=== PATIENT | female | born 1950 | race African-American/Black ===

== ENCOUNTER 2017-09-23 09:56 | Inpatient (IN) | payer MEDICARE, SELFPAY ==
[2017-09-23] VITALS (20 sets, daily range): BP systolic 85–111; BP diastolic 46–65; PULSE 66–86; RESP 14–18; TEMP 36.1–36.9; O2SAT 87–100; BMI 25.9
--- NOTE | 2017-09-23 | IMM_PTH ---
PATIENT: JONATHAN CASSIDY LOC: MS2 U#:[id number] AGE/SX: 67/F ROOM: [facility] [place] RE09/23/[address]: Dr. Vik Amezcua MD : 1950 BED: 1 DIS: 09/25/2017 SPEC #: [id number] RECD: 09/25/17 12:50 STATUS: MARLEN REQ #: [id number] EDITH: 09/23/17 00:[address]: Vik Amezcua DEPT: IMMUNOHISTOCHEMISTRY RECD BY: Amaury Jara ENTERED: 09/25/17 12:54 SP TYPE: IMMUNO OTHR DR: Dr. Elayne Herrera DO Tissues: Right colon Procedures: MSH2 (add) MLH-1 (add) MSH6 (add) Anti-PMS2 (add) HEART-2 (initial) HER2 ELIE (add) KI-67 (add) P53 (add) PHYSICIAN & INSTITUTION [place] [id number] SPECIMEN INFORMATION: Tissue Source: A. Right colon Clinical Info: Adenomatous polyp of colon Specimen Number: [id number] CPT code: 79723, 38656 x7 METHODOLOGY: Deparaffinized sections of prefer/formalin-fixed tissue or PAP/DQ stained slides are incubated with monoclonal/polyclonal antibodies/oligonucleotide probes. Localization is made via biotin free immunoperoxidase method. Appropriate controls are performed and reacted as expected. Results on target cell population are indicated in the following table: RESULTS: ANTIBODY / CLONE RESULT COLON CANCER PROFILE (Prognostic Markers) Ki-67 (30-9) positive, moderate P53 (DO-7) positive, 4% MSH2 (25D12) positive MSH6 (44) positive MLH-1 (M1) positive PMS2 (MGC9632) positive HEART-2 (SP21) positive Her-2neu (CB11) negative Testing for Her2 by IHC if equivocal, recommend testing for Her2 by FISH(remove/not needed) Result of Microsatellite Instability Study: Negative (no loss of mismatch protein; no microsatellite instability detected). These tests were developed and their performance characteristics determined by [facility]. They may not have been cleared or approved by the U.S. Food and Drug Administration. The FDA has determined that such clearance or approval is not necessary. INTERPRETATION: Colon, right hemicolectomy: Invasive adenocarcinoma AM:marino 09/26/17
[2017-09-23 11:38] LABS: Hemoglobin 11.2 g/dl (12.0-15.0); Red Blood Count 4.59 M/mm3 (4.2-5.4)
[2017-09-23 11:39] LABS: Absolute Lymphocyte Count 0.12 X10^3/ul (0.83-4.51); Absolute Neutrophil Count 4.3 X10^3/uL (2.0-7.7); Basophil# 0.02 X10^3/uL; Basophil% 0.3 % (0-1); Eosinophil# 0.06 X10^3/uL; Lymphocyte # 1.23 X10^3/ul (4.0); Lymphocyte % 20.5 % (19-41); Mean Corp Hgb Conc 30.3 g/gl (32-36); Mean Corpuscular Hgb 24.4 pg (27.0-32.0); Mean Corpuscular Volume 80.6 fL (81-99); Monocyte# 0.38 X10^3/uL; Monocyte% 6.3 % (0-10); Neutrophil # 4.31 X10^3/uL (2.7-7.7); Neutrophil % 71.7 % (47-70); POSITIVE COUNT NO; POSITIVE DIFFERENTIAL NO; POSITIVE MORPHOLOGY NO; Platelet Count 285 K/mm3 (150-450); RBC Distribution Width CV 17.2 % (11.6-14.6); RBC Distribution Width SD 50.9 fl (35.1-43.9)
--- NOTE | 2017-09-23 12:00 | COL_PTH ---
PATIENT: JONATHAN CASSIDY LOC: MS2 U#:[id number] AGE/SX: 67/F ROOM: [facility]211 RE09/23/[address]: Dr. Vik Amezcua MD : 1950 BED: 1 DIS: 09/25/2017 SPEC #: [id number] RECD: 09/23/17 13:55 STATUS: MARLEN NICOLA #: [id number] EDITH: 09/23/17 12:[address]: Vik Amezcua DEPT: SURGICAL PATHOLOGY RECD BY: Maldonado Carranza ENTERED: 09/23/17 14:43 SP TYPE: COLON OTHR DR: Dr. Elayne Herrera, DO Tissues: A - Colon, NOS B - Colon, NOS Procedures: Surgery Specimen Level IV Surgery Specimen Level V HEADER OPERATION: Laparoscopic, lorene colectomy PRE-OP DIAGNOSIS: Adenomatous polyp of colon TISSUE SUBMITTED: A. Right colon, B. Reanastomosis site MICROSCOPIC DIAGNOSIS A. Right colon, right hemicolectomy: Adenocarcinoma. See cancer check list below. B. Reanastomostis site, excision: Fragments of large and small bowel with no pathologic change. AM:jean 09/25/17 COMMENT COLON CANCER SUMMARY: Specimen ? right hemicolectomy Procedure ? right hemicolectomy Specimen length ? 13.5cms Tumor site - cecum Tumor size ? 4 x 3 x 3 mm Macroscopic tumor perforation ? not identified Macroscopic intactness of mesorectum - intact Histologic type - adenocarcinoma Histologic grade ? low-grade (well differentiated) Histologic features suggestive of Microsatellite Instability: Microscopic tumor extension ? tumor invades submucosal Margins: Proximal margin ? uninvolved by carcinoma Distal margin ? uninvolved by carcinoma Circumferential or mesenteric margin ? uninvolved by carcinoma Distance of invasive carcinoma from closest axial margin ? 6.5cms, proximal margin. Treatment effect - unknown Lymph-Vascular invasion ? not identified Perineural invasion ? not identified Tumor deposits ? 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 diverticular disease of colon Ancillary studies - Microsatellite instability study: See microsatellite instability study by IHC ([id number]) for complete details. Negative (no loss of mismatch protein; no microsatellite instability detected). Immunohistochemistry Studies for Mismatch Repair Proteins: MLH1 ? no loss MSH2 ? no loss MSH6 ? no loss PMS2 ? no loss PATHOLOGIC STAGE: pT1, N0, MX The above summary is in compliance with [employer] [place] Path[employer] (CAP) Cancer Protocols Checklist and [place] Joint Committee on Cancer (AJCC), Staging Manual, 7th Ed. Immunohistochemistry ([id number]) supports the above diagnosis. MICROSCOPIC DESCRIPTION Slides are reviewed. GROSS DESCRIPTION A. Received fresh for OR consultation labeled with the patient?s name and designated ?right colon?. The specimen consists of a 10 cm segment of large bowel with attached 3.5 cm of terminal ileum and attached 7 cm of appendix that has an average diameter of 0.7 cm. Located 3 cm distal to the ileocecal valve and 9 cm from the distal margin of resection is a pink burdick polyp measuring 3 x 2.5 x 1 cm. Serial sections of the appendix does not reveal mass lesions. Serial sections of the large bowel reveal several diverticula, none of which appear to have perforated through the bowel wall. The attached fibrofatty tissue contains a number of grossly unremarkable lymph nodes. Sections are submitted in 9 cassettes as follows: 1) Mucosa margins and appendix, 2) ileocecal valve, 3-5) Polyp, totally submitted, 6-7) diverticula, 8-9) multiple lymph nodes in each cassette. B. Received in fixative is one container labeled with the patient's name and designated reanastomotic site. The specimen consists of an irregular fragment of bowel measuring 2.5 x 2 x 1.2 cm. No mass lesions are identified. Interior Design Principal sections are submitted in 1 cassette. AM:jean 09/24/17 TC: 0 CPT:58050, 82591
[2017-09-23] MEDS: Clindamycin 900 MG/50 ML BAG 75 MG IV (12:05)
--- NOTE | 2017-09-23 12:10 | OP.PCM_ITS ---
Report of Operation Date of Procedure: 09/23/17 Pre-Operative Diagnosis: d12.6 adenomatous polyp of colon Post-Operative Diagnosis: Same Description of Surgical Findings:: Laparoscopic right hemicolectomy instrument inspector: None Type of Anesthesia:: General Anesthesiologist: Lalo Buckley Specimen's removed: Right colon Drains: none Estimated Blood Loss (mL): 100 cc Fluids Replaced: 1 L Description of Procedure: The patient was brought into the operating room and placed in the supine position. Under excellent general endotracheal intubation a Castro catheter was placed in the abdomen was sterilely prepped and draped in the usual fashion. Local was injected above the umbilicus dissection was carried down to the fascia. The fascia was grasped with a [place]. Varies needle was placed inside the abdomen. The abdomen was insufflated to 15 torr. A #5 trocar was placed under direct visualization without injury to underlying structures. Right lower quadrant #5 trochars placed. Some adhesions in the midline were taken down with the Enseal. A subxiphoid #5 trocar was placed. Patient was placed in the head down and rotated to the left. I mobilized the right colon along the white line of Toldt with the Enseal. I mobilized the colon all the way to the duodenum. I mobilized the hepatocolic ligament with the Enseal. Once I had the colon freely mobile I made a small incision in the midepigastric area. I placed a wound protector into the wound. I brought the right colon up and transected the colon at the hepatic flexure with a 75 linear cutter. I then transected the small intestine approximately 5 cm from the ileocecal valve with another 75 linear cutter. I came down on the mesentery and tied off the vessels with 0 Vicryl ties. I sent the colon specimen to pathology and they confirmed that I had the polyp in my specimen. I then created 2 enterotomies one on the: 1 on the small intestine. I placed a 75 linear cutter and created a [id number] functional end-to-end anastomosis. I closed the enterotomy with a 60 stapler. I placed a 3-0 silk stitch at the crotch area. I had a small bleeding vessel on the colonic mesenteric side which I tied off with 0 Vicryl ties. Once I had good hemostasis I closed the mesenteric rent with a 3-0 silk. I placed my specimen in the right upper quadrant it laid completely flat and looked quite nice. I removed my wound protector and closed the fascia with a # 1 PDS I reinflated the abdomen inspected the anastomosis once again it lied completely flat. I had good hemostasis. I deflated the abdomen. I remove the trochars good in the stasis is noted. Skin incisions were closed with subcuticular stitches of 4-0 Monocryl. Steri-Strips are applied sterile dressings were applied and the patient tolerated the procedure well. - Admit VTE Documentation VTE Present on Admission: No VTE Mechan Device Prophylaxis: SCD's VTE Pharm Prophylaxis ordered?: No Reason prophylaxis not ordered:: Treatment Not Indicated
[2017-09-23] MEDS: Bupivacaine Mpf 0.5% 30 ML VIAL (13:30)
[2017-09-23] MEDS: Gabapentin 300 MG Capsule PO (17:12)
[2017-09-23] MEDS: HYDROmorphone 1 MG/ML Syringe IV (17:12)
[2017-09-23] MEDS: Ondansetron 4 MG/2 ML Vial IV (17:19)
[2017-09-23] MEDS: HYDROmorphone PCA 0.2 MG/ML 100 ML BAG 20 MG IV (17:59)
[2017-09-23] MEDS: LORazepam 1 MG Tablet PO (21:06)
[2017-09-23] MEDS: traZODone 50 MG Tablet PO (22:07)
[2017-09-24] VITALS (14 sets, daily range): BP systolic 95–109; BP diastolic 47–67; PULSE 63–81; RESP 16–18; TEMP 36.7–37; O2SAT 93–100
[2017-09-24] MEDS: Lactated Ringers 1,000 ML 75 ML IV ×2 (00:05→11:47)
--- NOTE | 2017-09-24 03:55 | NURSING ---
SPOT WELDER LINE ambulated in hallway during this time.
--- NOTE | 2017-09-24 07:18 | PCM.PN.SRG ---
Subjective: Patient evaluated resting comfortably in bed. She notes abdominal bloating. She denies pain/discomfort, nausea, vomiting. She has walked this morning already. She is tolerating ice chips well. No flatus or BM. Has bower catheter in place. Denies fever and chest pain. - Physical Exam General: Alert, Oriented x3, Cooperative Lungs: Clear to auscultation, Normal air movement Cardiovascular: Regular rate, No murmurs Abdomen: Soft, Non-Distended, Hypoactive Bowel Sounds, Tender - generalized, - - Incisions c/d/i. No erythema or infection noted. Vital Signs Temp Pulse Resp BP Pulse Ox 98.2 F 71 16 103/47 L 98 09/24/17 06:58 09/24/17 06:58 09/24/17 06:58 09/24/17 06:58 09/24/17 06:58 Oxygen Flow Rate 1 Oxygen Delivery Method Nasal Cannula Weight: 137 lb 9.095 oz Body Mass Index (BMI) 25.9 Intake and Output for Last 24 Hours 09/22/17 09/23/17 09/24/17 23:59 23:59 23:59 Intake Total 3285 / 3285 464 / 464 Output Total 635 / 635 750 / 750 Balance 2650 / 2650 -286 / -286 Laboratory Tests Past 24 Hrs 09/23/17 11:05 WBC 6.0 RBC 4.59 Hgb 11.2 L Hct 37.0 MCV 80.6 L MCH 24.4 L MCHC 30.3 L RDW 17.2 H RDW Differential 50.9 H Plt Count 285 MPV 9.0 Immature Gran % (Auto) 0.200 Neut % (Auto) 71.7 H Lymph % (Auto) 20.5 [place] % (Auto) 6.3 Eos % (Auto) 1.0 Baso % (Auto) 0.3 Absolute Neuts (auto) 4.3 Absolute Lymphs (auto) 0.12 L Total Counted Not Reportable Assessment/Plan I am following this patient in conjunction with Dr. Amezcua. S/p laparoscopic right hemicolecotmy Advance diet to clear liquids Cont. IV fluids D/c bower Discussed ambulation multiple times today Cont. incentive spirometer use Continue to watch BP. EMBEDDED SOFTWARE ARCHITECT pump may be the etiology of the low blood pressure We will continue to monitor this patient
[2017-09-24] MEDS: Gabapentin 300 MG Capsule PO ×2 (08:52→16:21)
[2017-09-24] MEDS: Anastrozole 1 MG Tablet PO (08:52)
[2017-09-24] MEDS: HYDROcodone Bitartrate/Apap 5/325 Tablet PO ×2 (08:52→16:17)
[2017-09-24] MEDS: LORazepam 1 MG Tablet PO ×2 (08:55→21:40)
[2017-09-24] MEDS: Ondansetron 4 MG/2 ML Vial IV (08:55)
[2017-09-24 09:09] LABS: Absolute Lymphocyte Count 1.31 X10^3/ul (0.83-4.51); Absolute Neutrophil Count 6.5 X10^3/uL (2.0-7.7); Basophil# 0.03 X10^3/uL; Basophil% 0.3 % (0-1); Eosinophil# 0.11 X10^3/uL; Eosinophils% 1.2 % (0-5); Hematocrit 45.2 % (37-47); Hemoglobin 14.9 g/dl (12.0-15.0); Lymphocyte # 1.31 X10^3/ul (4.0); Lymphocyte % 14.9 % (19-41); Mean Corpuscular Hgb 26.1 pg (27.0-32.0); Mean Corpuscular Volume 79.2 fL (81-99); Mean Platelet Vol. 10.2 fl (6.2-12.0); Monocyte# 0.81 X10^3/uL; Monocyte% 9.2 % (0-10); Neutrophil # 6.53 X10^3/uL (2.7-7.7); Neutrophil % 74.2 % (47-70); Platelet Count 232 K/mm3 (150-450); RBC Distribution Width CV 16.3 % (11.6-14.6); RBC Distribution Width SD 47.1 fl (35.1-43.9); Red Blood Count 5.71 M/mm3 (4.2-5.4); White Blood Count 8.8 K/mm3 (4.4-11.0)
[2017-09-24 09:20] LABS: POSITIVE COUNT NO; POSITIVE DIFFERENTIAL NO; POSITIVE MORPHOLOGY NO
[2017-09-24 09:24] LABS: Anion Gap 12 (5-15); BUN 7 mg/dL (7-18); BUN/Creat Ratio 11.9 RATIO (10-20); Calcium,Total 8.2 mg/dL (8.5-10.1); Chloride 101 mmol/L (98-107); Creatinine, Serum 0.59 mg/dL (0.55-1.02); EST Glomerular Filtration Rate 108 mL/min (>60); Est Glom Filt Rate - Afr Amer 131 mL/min (>60); Estimated Creatinine Clearance 40.07 ml/min; Glucose 132 mg/dL (70-110); Potassium 3.5 mmol/L (3.5-5.1); Sodium Level 136 mmol/L (136-145)
--- NOTE | 2017-09-24 20:26 | NURSING ---
ELEVATOR CONSTRUCTOR HELPER ambulated in hallway with patient at this time.
[2017-09-24] MEDS: traZODone 50 MG Tablet PO (21:40)
[2017-09-25] MEDS: Lactated Ringers 1,000 ML 75 ML IV (00:05)
[2017-09-25 02:15] VITALS: BP 91/53; PULSE 80; RESP 16; TEMP 36.8; O2SAT 94
[2017-09-25] MEDS: HYDROcodone Bitartrate/Apap 5/325 Tablet PO ×2 (04:26→07:50)
--- NOTE | 2017-09-25 07:17 | DCINST_ITS ---
Discharge Diet: Soft diet - Low residue. Can have pudding, yogurt, applesauce, mashed potatoes, etc. No fresh or steamed veggies Discharge Activity: May not drive while taking narcotic pain medications. May shower in (days): 1 Lifting Restrictions: 10 pounds Call your doctor if your incision/area has: Continuous Slow Oozing, Sudden Increased Bleeding, Increased Pain/ Swelling, Increased Redness, Foul Smelling Discharge, Swelling at the incision site Call your doctor if you observe: Fever of 101 or Higher, Coldness, Increased Pain Suture Line Care: Avoid Pulling/Pushing, Avoid Pinching/Bending Change Dressing in (Days):: 4 - Leave steri-strips in place for 1 week. Cleanse incision/area with: Soap & Water Allergies/Adverse Reactions: Allergies Penicillins Allergy (Verified 09/19/17 11:50) Hives aspirin Adverse Reaction (Verified 09/19/17 11:50) Upset Stomach Medications to take at Discharge Acetaminophen [Non-Aspirin Pain Relief] 500 mg PO Q8H PRN PRN 04/24/16 Cholecalciferol (Vitamin D3) [Vitamin D3] 1 tab PO DAILY 04/24/16 Gabapentin [Neurontin] 300 mg PO BIDCM 02/15/17 Lidocaine/Prilocaine [Lidocaine-Prilocaine Cream] 30 gm TP PRN PRN 02/15/17 Anastrozole [Arimidex] 1 mg PO DAILY 08/06/17 Lorazepam [Ativan] 1 mg PO BID 08/06/17 Trazodone HCl 50 mg PO QHS 08/06/17 Rivaroxaban [Xarelto] 20 mg PO DAILY 09/23/17 Hydrocodone Bitart/Apap 5-325 [[place] 5/325] 1 - 2 tab PO Q4H PRN PRN #30 tab 04/06 The following prescriptions were given: Hydrocodone Bitart/Apap 5-325 [[place] 5/325] 1 - 2 tab PO Q4H PRN PRN #30 tab PRN Reason: Severe Pain (-07/30) Primary Care Physician: Elayne Herrera DO [Primary Care Provider] - Please Follow Up With: Aleyda Valencia PA-C - [phone] Proposed Discharge Date: 09/25/17
--- NOTE | 2017-09-25 07:18 | PCM.PN.SRG ---
Subjective: Patient evaluated resting comfortably in bed. She notes minimal amount of incisional pain/discomfort. She denies nausea, vomiting, fever. She noted very small amount of flatus this morning. Negative BM. Tolerating clear liquid diet. - Physical Exam General: Alert, Oriented x3, Cooperative Abdomen: Bowel Sounds Present, Soft, Non Tender, Non-Distended, - - Incisions c/d/i/. No erythema or infection noted Vital Signs Temp Pulse Resp BP Pulse Ox 98.2 F 80 16 91/53 L 94 09/25/17 02:15 09/25/17 02:15 09/25/17 02:15 09/25/17 02:15 09/25/17 02:15 Oxygen Flow Rate 1 Oxygen Delivery Method Room Air Weight: 137 lb 9.095 oz Body Mass Index (BMI) 25.9 Intake and Output for Last 24 Hours 09/23/17 09/24/17 09/25/17 23:59 23:59 23:59 Intake Total 3285 / 3285 3313 / 3313 399 / 399 Output Total 635 / 635 2700 / 2700 450 / 450 Balance 2650 / 2650 613 / 613 -51 / -51 Laboratory Tests Past 24 Hrs 09/24/17 09/24/17 08:45 08:45 WBC 8.8 RBC 5.71 H Hgb 14.9 Hct 45.2 MCV 79.2 L MCH 26.1 L MCHC 33.0 RDW 16.3 H RDW Differential 47.1 H Plt Count 232 MPV 10.2 Immature Gran % (Auto) 0.200 Neut % (Auto) 74.2 H Lymph % (Auto) 14.9 L [place] % (Auto) 9.2 Eos % (Auto) 1.2 Baso % (Auto) 0.3 Absolute Neuts (auto) 6.5 Absolute Lymphs (auto) 1.31 Total Counted Not Reportable Sodium 136 Potassium 3.5 Chloride 101 Carbon Dioxide 23.0 Anion Gap 12 BUN 7 Creatinine 0.59 Estim Creat Clear Calc 40.07 Est GFR (MDRD) Af Amer 131 Est GFR (MDRD) Non-Af 108 BUN/Creatinine Ratio 11.9 Glucose 132 H Calcium 8.2 L Assessment/Plan I am following this patient in conjunction with Dr. Amezcua. S/p laparoscopic right hemicolectomy Advance diet to full liquids Cont. IV fluids Discussed ambulation multiple times today Cont. incentive spirometer use Pain controlled with oral pain medication We will continue to monitor this patient Probable discharge today
[2017-09-25] MEDS: Anastrozole 1 MG Tablet PO (07:49)
[2017-09-25] MEDS: Gabapentin 300 MG Capsule PO (07:49)
[2017-09-25] MEDS: LORazepam 1 MG Tablet PO (07:49)
[2017-09-25] MEDS: BENZOCAINE/MENTHOL 1 LOZENGE 2 LOZENGE MUCOUS MEM (07:50)
[2017-09-25 08:15] VITALS: BP 111/72; PULSE 79; RESP 18; TEMP 36.9; O2SAT 98
[2017-09-25 12:37] VITALS: BP 96/54; PULSE 84; RESP 18; TEMP 37.1; O2SAT 94
--- NOTE | 2017-09-25 12:40 | PCM.DC.SUM ---
Discharge Date and Diagnosis Date of Admission: 09/23/17 Date of Discharge: 09/25/17 - Primary Discharge Diagnosis D12.6 adenomatous polyp of colon Hospital Course and Treatment Operations: colectomy - laparoscopic right hemicolectomy Procedures: None Summary of Care Provided: The patient is a 67 year old F who had a non-colonoscopy resectable colon polyp. Dr. Amezcua performed a laparoscopic right hemicolectomy on 09/23/2017. Patient tolerated the procedure well. Patient's hospitalization was uncomplicated. Upon discharge, patient noted minimal incisional discomfort. Her pain was well controlled. She denies nausea, vomiting with full liquid diet. Positive flatus and multiple bowel movements. She was urinating well. Discharge Diet: Soft diet - Low residue. Can have pudding, yogurt, applesauce, mashed potatoes, etc. No fresh or steamed veggies Discharge Activity: May not drive while taking narcotic pain medications. May shower in (days): 1 Call your doctor if your incision/area has: Continuous Slow Oozing, Sudden Increased Bleeding, Increased Pain/ Swelling, Increased Redness, Foul Smelling Discharge, Swelling at the incision site Call your doctor if you observe: Fever of 101 or Higher, Coldness, Increased Pain Suture Line Care: Avoid Pulling/Pushing, Avoid Pinching/Bending Change Dressing in (Days):: 4 - Leave steri-strips in place for 1 week. Cleanse incision/area with: Soap & Water Home Medications: Medications to take at Discharge Acetaminophen [Non-Aspirin Pain Relief] 500 mg PO Q8H PRN PRN 04/24/16 Cholecalciferol (Vitamin D3) [Vitamin D3] 1 tab PO DAILY 04/24/16 Gabapentin [Neurontin] 300 mg PO BIDCM 02/15/17 Lidocaine/Prilocaine [Lidocaine-Prilocaine Cream] 30 gm TP PRN PRN 02/15/17 Anastrozole [Arimidex] 1 mg PO DAILY 08/06/17 Lorazepam [Ativan] 1 mg PO BID 08/06/17 Trazodone HCl 50 mg PO QHS 08/06/17 Rivaroxaban [Xarelto] 20 mg PO DAILY 09/23/17 Hydrocodone Bitart/Apap 5-325 [[place] 5/325] 1 - 2 tab PO Q4H PRN PRN #30 tab 09/25/17 Following Prescrptions Were Given to Patient: Hydrocodone Bitart/Apap 5-325 [[place] 5/325] 1 - 2 tab PO Q4H PRN PRN #30 tab PRN Reason: Severe Pain (-07/30) Primary Care Physician: Elayne Herrera DO [Primary Care Provider] - Please Follow Up With: Aleyda Valencia PA-C - [phone] Disposition: Home Patient Condition:: Good Meaningful Use Info Meaningful Use Diagnoses (Choose all that apply): None applicable
--- NOTE | 2017-09-25 12:46 | DS.PCM_ITS ---
Discharge Date and Diagnosis Date of Admission: 09/23/17 Date of Discharge: 09/25/17 - Primary Discharge Diagnosis D12.6 adenomatous polyp of colon Hospital Course and Treatment Operations: colectomy - laparoscopic right hemicolectomy Procedures: None Summary of Care Provided: The patient is a 67 year old F who had a non-colonoscopy resectable colon polyp. Dr. Amezcua performed a laparoscopic right hemicolectomy on 09/23/2017. Patient tolerated the procedure well. Patient's hospitalization was uncomplicated. Upon discharge, patient noted minimal incisional discomfort. Her pain was well controlled. She denies nausea, vomiting with full liquid diet. Positive flatus and multiple bowel movements. She was urinating well. Discharge Diet: Soft diet - Low residue. Can have pudding, yogurt, applesauce, mashed potatoes, etc. No fresh or steamed veggies Discharge Activity: May not drive while taking narcotic pain medications. May shower in (days): 1 Call your doctor if your incision/area has: Continuous Slow Oozing, Sudden Increased Bleeding, Increased Pain/ Swelling, Increased Redness, Foul Smelling Discharge, Swelling at the incision site Call your doctor if you observe: Fever of 101 or Higher, Coldness, Increased Pain Suture Line Care: Avoid Pulling/Pushing, Avoid Pinching/Bending Change Dressing in (Days):: 4 - Leave steri-strips in place for 1 week. Cleanse incision/area with: Soap & Water Home Medications: Medications to take at Discharge Acetaminophen [Non-Aspirin Pain Relief] 500 mg PO Q8H PRN PRN 04/24/16 Cholecalciferol (Vitamin D3) [Vitamin D3] 1 tab PO DAILY 04/24/16 Gabapentin [Neurontin] 300 mg PO BIDCM 02/15/17 Lidocaine/Prilocaine [Lidocaine-Prilocaine Cream] 30 gm TP PRN PRN 02/15/17 Anastrozole [Arimidex] 1 mg PO DAILY 08/06/17 Lorazepam [Ativan] 1 mg PO BID 08/06/17 Trazodone HCl 50 mg PO QHS 08/06/17 Rivaroxaban [Xarelto] 20 mg PO DAILY 09/23/17 Hydrocodone Bitart/Apap 5-325 [[place] 5/325] 1 - 2 tab PO Q4H PRN PRN #30 tab 04/06 Following Prescrptions Were Given to Patient: Hydrocodone Bitart/Apap 5-325 [[place] 5/325] 1 - 2 tab PO Q4H PRN PRN #30 tab PRN Reason: Severe Pain (-07/30) Primary Care Physician: Elayne Herrera DO [Primary Care Provider] - Please Follow Up With: Aleyda Valencia PA-C - [phone] Disposition: Home Patient Condition:: Good Meaningful Use Info Meaningful Use Diagnoses (Choose all that apply): None applicable
--- NOTE | 2017-09-25 14:38 | NURSING ---
DR FARFAN PAGED TO [facility] CANDELARIO WHICH PT WAS TOLD TO CONTINUE AT HOME AND SHE STATES SHE IS NO LONGER TAKING-
--- NOTE | 2017-09-25 14:49 | NURSING ---
DR FARFAN RETURNED PAGE AND VERIFIED PT CAN REMAIN OFF XARELTO AT THIS TIME PT UPDATED/AWARE AND READY FOR D/C
== END 2017-09-25 15:13 | disposition home or self-care (01) | DRG 331 ==
LOC: ACINP 09:57 → MS2 15:34
PROVIDERS: Anesthesiology; Physician Assistant; Admitting Provider Surgery; Family Provider Family Medicine; PCP Family Medicine; Visit Provider Surgery
PROC: 0DTF4ZZ Resection of Right Large Intestine, Percutaneous Endoscopic Approach (ICD-10-PCS; CPT 44205; principal; 2017-09-23 11:45)
DX: C18.2 Malignant neoplasm of ascending colon (principal)
CPT/HCPCS: 80048; 85025; 88305; 88307; 88341; 88342; J7120; J1170; J2405

== ENCOUNTER 2019-11-26 20:24 | Emergency (ER) | payer MEDICARE, SELFPAY ==
[2019-11-26 20:26] VITALS: BP 135/78; PULSE 90; RESP 15; TEMP 37.2; O2SAT 98; BMI 31.6
--- NOTE | 2019-11-26 21:00 | RAD_ITS ---
STUDY: X-RAY - RIGHT WRIST REASON FOR EXAM: Female, 69 years old. RT WRIST PAIN AND BRUISING POST FALL TODAY. TECHNIQUE: 3 view(s) of the wrist were obtained. COMPARISON: None. FINDINGS: Acute comminuted intra-articular dorsal impaction fracture of the distal radius. Moderate dorsal impaction. Mild dorsal angulation of the radiocarpal joint. Small avulsion injury of the ulnar styloid process. Normal carpal bones. Normal carpal articulations. There is degenerative arthrosis of the carpometacarpal articulation of the thumb. Normal second through fifth carpometacarpal articulations. Normal visualized metacarpal bones. Fracture related soft tissue swelling. RAD/Wrist min 3 Views IMPRESSION: Acute comminuted dorsal impaction fracture of the distal radius with moderate dorsal impaction and mild dorsal tilt of the radiocarpal joint with a small avulsion fracture from the ulnar styloid process. Electronically Signed: Francine Beck MD at 21:29 EST , Service support ,
[2019-11-26] MEDS: Morphine 4 MG/ML Syringe SC (21:13)
--- NOTE | 2019-11-26 21:59 | ED.DCSUM_ITS ---
- ER Visit Summary Date of Service: 11/26/19 Chief Complaint: Right wrist pain History of Present Illness: The patient is a 69 F with right wrist pain after she fell earlier today. The dog pulled her and she slept. No other injuries or complaints. No blood thinners. Physical Examination: Patient has swelling and tenderness to her right wrist. Neurovascular intact distally. Skin intact. Compartments soft. The rest of her extremity is unremarkable. No other signs of trauma on exam. Test Results: X-rays show a distal radius fracture without significant displacement Emergency Department Course and Treatment: Patient received morphine for pain. After discussion with the patient, splint was applied and she will follow-up as an outpatient with Ortho. Copious padding applied. Ortho-Glass splinting material applied. Patient tolerated this well. Neurovascular intact distally. Sling as needed for comfort. Rest, ice, elevate. Pain meds. Return for any worsening issues. Treatment Plan: As above Disposition: Discharge Impression: Right distal radius fracture This note was generated with Veri[employer]ainer dictation software. It may contain incorrect words, spelling, and punctuation that were not noted in review of the chart prior to signing ED Disposition - Plan for ED Patient: Referrals: Elayne Herrera DO [Primary Care Provider] -
--- NOTE | 2019-11-26 22:01 | ED.DEP ---
ED Disposition - Plan for ED Patient: Instructions: FRACTURE, Wrist [General] Prescriptions: Oxycodone HCl/Acetaminophen [Percocet 5/325] 1 tab PO Q6H PRN PRN 3 Days #12 tab PRN Reason: Pain Prescription Printed Referrals: Bishop Valenzuela DO [STAFF PHYSICIAN] -
== END 2019-11-26 22:13 | disposition home or self-care (01) ==
LOC: ED 20:46
PROVIDERS: Emergency Provider Emergency Medicine; PCP Family Medicine
DX: S52.501A Unspecified fracture of the lower end of right radius, initial encounter for closed fracture (principal); W19.XXXA Unspecified fall, initial encounter; Y93.9 Activity, unspecified; Y92.9 Unspecified place or not applicable
CPT/HCPCS: 29125; 73110; 96372; 99283

== ENCOUNTER → 2020-02-16 16:02 | Outpatient (CLI) | payer MEDICARE, SELFPAY | PROVIDERS: PCP Family Medicine; Referring Provider Ophthalmology; Visit Provider Ophthalmology | DX: G70.00 Myasthenia gravis without (acute) exacerbation (principal) | CPT/HCPCS: 36415; 83519 ==

== ENCOUNTER → 2020-12-09 10:17 | Outpatient (CLI) | payer MEDICARE, SELFPAY ==
--- NOTE | 2020-12-09 10:21 | VDUE_ITS ---
Reason For Study: Swelling Left Proximal Left jugular vein is spontaneous, widely patent, phasic, with no intraluminal echogenicity noted. Left subclavian vein is spontaneous, widely patent, phasic, with no intraluminal echogenicity noted. Left Arm Left axillary vein is spontaneous, patent, phasic, competent, compressible and demonstrates augmentation. Left brachial vein is compressible. Left cephalic vein is compressible. Left basilic vein is compressible. Left Lower Arm Left radial vein is compressible. Left ulnar vein is compressible. Patient Safety Prelim to Fidel. Interpretation Summary Deep veins of the left upper extremity are patent and compressible segmentally. There is no evidence of deep vein thrombosis. The superficial veins of the left upper extremity, the basilic and cephalic veins, are patent and compressible. There is no evidence of left upper extremity superficial thrombophebitis involving the veins imaged. Ordering Physician: Yamil Parra Referring Physician: Elayne Herrera Performed By: Mickie Hernandez RVT ?
== END ==
PROVIDERS: PCP Family Medicine; Referring Provider Internal Medicine Hematology & Oncology; Visit Provider Internal Medicine Hematology & Oncology
DX: M79.89 Other specified soft tissue disorders (principal); C50.412 Malignant neoplasm of upper-outer quadrant of left female breast; Z17.0 Estrogen receptor positive status [ER+]; C79.51 Secondary malignant neoplasm of bone; C78.7 Secondary malignant neoplasm of liver and intrahepatic bile duct; I82.890 Acute embolism and thrombosis of other specified veins
CPT/HCPCS: 93971

== ENCOUNTER → 2023-01-03 | Outpatient (CLI) | payer MEDICARE, SELFPAY ==
--- NOTE | 2023-01-03 11:05 | ECHODONC_ITS ---
Reason For Study: BREAST CANCER Procedure This was a 2D Doppler, Color Flow transthoracic echocardiogram. Myocardial strain analysis was performed in this exam to aid in the assessment of cardiac function. Exam performed in department. Left Ventricle Normal LV size. Left ventricular systolic function is normal. The estimated ejection fraction is 55 %. Stage 1 diastolic dysfunction. No regional wall motion abnormalities noted. Right Ventricle Normal RV size. Normal systolic function. Atria Normal left atrium. Normal right atrium. Mitral Valve Normal mitral valve. Tricuspid Valve Normal tricuspid valve. Aortic Valve Trisinus/trileaflet aortic valve. Pulmonic Valve Normal pulmonic valve. Great Vessels Normal aortic root. The pulmonary artery is normal size. Normal inferior vena cava. Pericardium/Pleural No pericardial effusion. MMode/2D Measurements & Calculations LVIDd: 4.9 cm IVSd: 0.73 cm Ao root diam: 2.7 cm LVIDs: 3.0 cm LVPWd: 0.87 cm RVDd: 2.9 cm FS: 38.8 % LAV(MOD-bp): 73.5 ml LVAd ap4: 28.2 cm2 LVAd ap2: 27.1 cm2 LAV(MOD-bp) Indexed: 45.3 ml/m2 LVLd ap4: 7.8 cm LVLd ap2: 7.4 cm LAV(MOD-sp2): 70.5 ml EDV(MOD-sp4): 83.8 ml EDV(MOD-sp2): 82.6 ml LAV(MOD-sp4): 75.3 ml EDV(sp4-el): 87.2 ml EDV(sp2-el): 84.0 ml LVAs ap4: 14.2 cm2 LVAs ap2: 13.0 cm2 LVLs ap4: 5.9 cm LVLs ap2: 5.9 cm ESV(MOD-sp4): 28.6 ml ESV(MOD-sp2): 24.7 ml ESV(sp4-el): 28.7 ml ESV(sp2-el): 24.4 ml EF(MOD-sp4): 65.8 % EF(MOD-sp2): 70.1 % EF(sp4-el): 67.1 % SV(MOD-sp4): 55.1 ml SV(MOD-sp2): 57.9 ml SV(sp4-el): 58.5 ml LA A4 area: 22.2 cm2 RA A4 area: 16.4 cm2 Time Measurements MV dec time: 0.18 sec Doppler Measurements & Calculations MV E max gurvinder: 68.9 cm/sec Lat Peak E' Gurvinder: 13.9 cm/sec Med Peak E' Gurvinder: 6.6 cm/sec MV A max gurvinder: 91.8 cm/sec E/E' lat: 5.0 E/E' med: 10.5 MV E/A: 0.75 MV V2 max: 93.8 cm/sec MV dec slope: 380.4 cm/sec2 Ao V2 max: 139.5 cm/sec MV max P.5 mmHg Ao max P.9 mmHg MV V2 mean: 65.2 cm/sec Ao V2 mean: 98.3 cm/sec MV mean P.8 mmHg Ao mean P.4 mmHg MV V2 VTI: 26.3 cm Ao V2 VTI: 30.6 cm AV (velocity ratio): 0.77 LV V1 max: 109.0 cm/sec MR max gurvinder: 494.8 cm/sec PA V2 max: 96.9 cm/sec LV V1 max P.8 mmHg MR max P.9 mmHg PA V2 mean: 70.7 cm/sec LV V1 mean P.5 mmHg LV V1 mean: 74.9 cm/sec LV V1 VTI: 23.5 cm ECHO/ONC Echo Complete Interpretation Summary Normal LV size. Left ventricular systolic function is normal. The estimated ejection fraction is 55 %. Stage 1 diastolic dysfunction. The global longitudinal strain is normal. The global longitudinal strain = -20. 5 % (normal). Ordering Physician: Yamil Parra Referring Physician: Yamil Parra Performed By: Vikki Prasad RCS
== END | disposition home or self-care (01) ==
LOC: CVS 11:01
PROVIDERS: PCP Family Medicine; Referring Provider Internal Medicine Hematology & Oncology; Visit Provider Internal Medicine Hematology & Oncology
DX: C50.412 Malignant neoplasm of upper-outer quadrant of left female breast (principal); C78.7 Secondary malignant neoplasm of liver and intrahepatic bile duct; Z17.0 Estrogen receptor positive status [ER+]; I51.9 Heart disease, unspecified
CPT/HCPCS: 93306; 93356